=== PATIENT | male | born 1950 | race Caucasian/White ===

== ENCOUNTER → 2019-02-08 | Outpatient (CLI) | payer OTHER ==
[~2019-02-08] MED LIST: ACET325T14 PO; GABA-827 PO; METFORMIN; MULTI VITAMIN; NONE PER PT; PT WILL BRING LIST; VITAMIN B; VITAMIN C; [UNRECOGNIZED DRUG - OTHER]
== END | disposition home or self-care (01) ==
LOC: CFH 12:39
PROVIDERS: ATTEND Family Medicine
DX: R92.2 Inconclusive mammogram (principal); N62 Hypertrophy of breast
CPT/HCPCS: 77066